=== PATIENT | female | born 1930 | race Caucasian/White ===

== ENCOUNTER 2017-09-04 08:14 | Day surgery (SDC) | payer OTHER ==
[~2017-09-04 08:14] MED LIST: ALBU90OI INH; ALL DAY ALLERGY10 M1; Augmentin 875-1 EACH PO; CHOL10002; ESTRADIOL1 MG; GABA300; HYDHCL25; HYDR1TAB94; Norco 5-325 Ta1 EACH PO; OFLO.3OTSO; PARO20; Ventolin Soln3 ML INH
== END 2017-09-04 22:38 | disposition home or self-care (01) ==
LOC: MOI US 08:14
PROC: 0HBU3ZX Excision of Left Breast, Percutaneous Approach, Diagnostic (ICD-10-PCS; principal; 2017-09-04)
DX: N60.32 Fibrosclerosis of left breast (principal)
CPT/HCPCS: 19083; 19084; 77065; 88305; A4648

== ENCOUNTER 2018-04-12 09:52 | Inpatient (IN) | payer OTHER ==
[~2018-04-12] VITALS: Ht 165.1 cm; Wt 85.0 kg
[~2018-04-12 09:52] MED LIST changes: -ALL DAY ALLERGY10 M1; +ALL DAY ALLERGY10 M1 PO; -PARO20; +PARO20 PO
[2018-04-12 10:28] LABS: BASOPHILS ABSOLUTE AUTO 0.02 K/mm3 (0.00-0.23); BASOPHILS PERCENT AUTO 0 % (0-2); EOSINOPHILS ABSOLUTE AUTO 0.01 K/mm3 (0.00-0.68); EOSINOPHILS PERCENT AUTO 0 % (0-6); Hematocrit 41.5 % (33.0-51.0); Hemoglobin 13.1 g/dL (11.5-16.0); IMMATURE GRAN ABSOLUTE AUTO 0.01 K/mm3 (0.00-0.10); IMMATURE GRAN PERCENT AUTO 0 % (0-1); LYMPHOCYTES PERCENT AUTO 24 % (21-46); MONOCYTES ABSOLUTE AUTO 0.27 K/mm3 (0.16-1.47); MONOCYTES PERCENT AUTO 5 % (4-13); Mean Corpuscular HGB 28.7 pg (26.0-34.0); Mean Corpuscular HGB Conc 31.6 g/dL (31.5-36.5); Mean Corpuscular Volume 91 fL (80-100); Mean Platelet Volume 9.9 fL (9.1-12.4); NEUTROPHILS ABSOLUTE AUTO 3.51 K/mm3 (1.96-9.15); NEUTROPHILS PERCENT AUTO 70 % (41-73); Platelet Count 183 K/mm3 (150-400); RDW Coefficient Variation 13.8 % (11.7-14.2); Red Blood Cell Count 4.56 M/mm3 (3.80-5.20); White Blood Cell Count 5.02 K/mm3 (4.00-11.30)
[2018-04-12 10:39] LABS: Alanine Aminotransfer (ALT/SGP 21 U/L (12-78); Albumin, Blood 3.6 g/dL (3.4-5.0); Albumin/Globulin Ratio 1.1 (0.8-1.8); Alk Phos 75 U/L (50-136); Anion Gap 7 mmol/L (6-16); Aspartate Aminotrans (AST/SGOT 16 U/L (12-37); Bilirubin, Total 0.5 mg/dL (0.1-1.0); Blood Urea Nitrogen 20 mg/dL (8-24); Bun/Creatinine Ratio 18.3 (12.0-20.0); CO2, Blood 26 mmol/L (21-32); Calcium, Blood 9.2 mg/dL (8.5-10.1); Chloride, Blood 107 mmol/L (98-108); Creatinine, Blood 1.09 mg/dL (0.40-1.00); Ethanol (Alcohol), Blood, Med <3 mg/dL; Globulin, Blood 3.4 g/dL (2.2-4.0); Glomerular Filtration Rate 50 (60-); Glucose, Blood 130 mg/dL (70-99); Potassium, Blood 4.3 mmol/L (3.5-5.5); Sodium, Blood 140 mmol/L (136-145)
[2018-04-12 10:40] LABS: International Normalized Ratio 0.95; Prothrombin Time Results 10.1 Sec (9.7-11.5)
[2018-04-12 11:44] LABS: Source, Urine Catheter
[2018-04-12 12:18] LABS: Appearance, Urine Clear (Clear); Bilirubin, Urine Neg (Neg); Blood, Urine 3+ (Neg); Color, Urine Yellow (P-Yellow); Glucose Qualitative, Urine Neg (Neg); Ketones, Urine Neg (Neg); Leukocyte Esterase, Urine Neg (Neg); Nitrite, Urine Neg (Neg); Protein, Urine Neg (Neg); Specific Gravity, Urine 1.015 (1.003-1.022); Urobilinogen, Urine NORM (Normal)
[2018-04-12 12:56] LABS: Squamous Epithelial Cells Few /hpf (Few); White Blood Cells, Urine 0-2 /hpf (0-5)
[2018-04-12 12:57] LABS: Bacteria Rare /hpf
[2018-04-12] MEDS ORDERED: PREG75 PO (13:12)
[2018-04-12 13:15] LABS: U Amphetamine Screen Not Detected; U Barbituate Screen Not Detected; U Benzodiazapine Screen Not Detected; U Buprenorphine Screen Not Detected; U Cannabinoids Screen Not Detected; U Cocaine Screen Not Detected; U Methadone Screen Not Detected; U Methamphetamine Screen Not Detected; U Opiates Screen Not Detected; U Oxycodone Screen Not Detected; U Phencyclidine Screen Not Detected; U Propoxyphene Screen Not Detected
[2018-04-12] MEDS ORDERED: KEFLEX250 MG PO (13:16)
[2018-04-12 13:37] LABS: Troponin I <0.015 ng/mL (0.000-0.040)
[2018-04-12 13:38] LABS: Thyroid Stimulating Hormone 0.798 uIU/mL (0.360-4.800)
[2018-04-12] MEDS ORDERED: BACI500TO LEFTEYE (13:59)
[2018-04-12] MEDS ORDERED: Ocuflox5 ML LEFTEYE (14:00)
[2018-04-12] MEDS ORDERED: TOBRADEX ST EYE5 ML BOTHEYES (14:03)
[2018-04-12] MEDS ORDERED: ACET325 PO (16:06)
--- NOTE | 2018-04-12 16:35 | NUR ---
ER ADMIT- NEW ER ADMIT TO ROOM 325. GRAND DAUGHTER AT BEDSIDE. PT A/OX4, BUT HAVING A HARD TIME REMEMBERING THIS AM PRIOR TO COMING TO HOSPITAL. CLIENT CARE SPECIALIST AND LOWER EXTREMETIES STRONG AND EQUAL. SPEECH SLURRED. PT DENIES ANY PAIN OR OTHER COMPLAINTS. PT REPORTS CHRONIC NUMBNESS TO BILAT HANDS. LS CLEAR, ON RA, PT REPORTS SHE WEARS OXYGEN AT 2L AT HS. PT ASSITED UP TO BSC WITH 1 ASSIST, PT FOLLOWS DIRECTION WELL AND BEARS WEIGHT. PT VOIDED 500CC. BEDSIDE NURSE SWALLOW COMPLETED AND PT DID WELL WITH SWALLOWING AND ASKING FOR FOOD, PER DR GARCES OK TO ORDER SOFT DIET. PT ORIENTED TO ROOM AND CALL SYSTEM, CALL LIGHT IN REACH AND BED ALARM ON. SEIZURES PADS ON RAILS. SON FROM [place] UPDATED VIA PHONE.
--- NOTE | 2018-04-12 18:27 | NUR ---
PT ATE 100% OF DINNER, NO DIFFICULTY NOTED WITH SWALLOWING. SPEECH CLEAR AND AT BASELINE PER FAMILY, FAMILY REPORTS PT STILL WORD SEARCHING AT TIMES. PT UP TO BSC WITH 1 ASSIST, IMPULSIVE AND SLIGHTLY UNSTEADY. GRIBS REMAIN EQUAL AND STRONG. PT REPORTS SHE IS UNSURE WHAT MEDICATIONS SHE TOOK THIS AM BUT WAS RECENTLY DIAGNOSED WITH UTI AND STARTED ON ANTIBIOTICS. SPOKE WITH SON FROM [employer] WHO REPORTS THEY WERE TALKING WITH PT RECENTLY PRIOR TO ADMIT ABOUT NEEDING MORE ASSISTANCE IN THE HOME AND WITH MEDICATIONS.
[2018-04-13 05:26] LABS: BASOPHILS ABSOLUTE AUTO 0.01 K/mm3 (0.00-0.23); BASOPHILS PERCENT AUTO 0 % (0-2); EOSINOPHILS PERCENT AUTO 2 % (0-6); Hematocrit 37.8 % (33.0-51.0); Hemoglobin 11.7 g/dL (11.5-16.0); IMMATURE GRAN ABSOLUTE AUTO 0.01 K/mm3 (0.00-0.10); IMMATURE GRAN PERCENT AUTO 0 % (0-1); LYMPHOCYTES ABSOLUTE AUTO 1.95 K/mm3 (0.84-5.20); LYMPHOCYTES PERCENT AUTO 43 % (21-46); MONOCYTES ABSOLUTE AUTO 0.31 K/mm3 (0.16-1.47); MONOCYTES PERCENT AUTO 7 % (4-13); Mean Corpuscular HGB 28.5 pg (26.0-34.0); Mean Corpuscular Volume 92 fL (80-100); Mean Platelet Volume 10.1 fL (9.1-12.4); NEUTROPHILS ABSOLUTE AUTO 2.17 K/mm3 (1.96-9.15); NEUTROPHILS PERCENT AUTO 48 % (41-73); Platelet Count 205 K/mm3 (150-400); RDW Coefficient Variation 14.1 % (11.7-14.2); RDW Standard Deviation 47.2 fL (35.1-46.3); Red Blood Cell Count 4.11 M/mm3 (3.80-5.20); White Blood Cell Count 4.55 K/mm3 (4.00-11.30)
[2018-04-13 05:53] LABS: Anion Gap 6 mmol/L (6-16); Blood Urea Nitrogen 17 mg/dL (8-24); CO2, Blood 28 mmol/L (21-32); Calcium, Blood 8.8 mg/dL (8.5-10.1); Chloride, Blood 111 mmol/L (98-108); Cholesterol 178 mg/dL (50-200); Creatinine, Blood 1.21 mg/dL (0.40-1.00); Glomerular Filtration Rate 45 (60-); Glucose, Blood 129 mg/dL (70-99); Potassium, Blood 4.4 mmol/L (3.5-5.5); Sodium, Blood 145 mmol/L (136-145)
[2018-04-13 05:55] LABS: CHOL/HDL RATIO 4.6; HDL Cholesterol 39 mg/dL (>39); LDL/HDL RATIO 2.4; Low Density Lipoprotein Chol 94 mg/dL (0-110); Triglycerides 227 mg/dL (30-160); Very Low Density Lipoprot Chol 45 mg/dL (6-32)
--- NOTE | 2018-04-13 06:36 | NUR ---
Rn summary: Pt is alert and oriented x3. She has rested well this shift. Pt has stiffness to rt shoulder but transformer mechanic are equal, foot push pulls equal. Pt is impulsive when she needs to go to the BSC but is otherwise cooperative and appropriate. Pt has pink tinged urine. She states she has N/T to margarita hands and feet. She c/o pain to right lower quad and area is tender to touch. Bowel tones hyper active. Abdomen rounded but soft. Neuro checks q 4 hours, they remain stable. Call light in reach and bed alarm on. Temp this am 100.1. A few blankets removed.
--- NOTE | 2018-04-13 19:51 | NUR ---
PATIENT A&O X4. DENIES PAIN, SOB, OR NAUSEA. NEURO CHECKS Q 4, WNL. PATIENT RESTED THROUGHOUT THE SHIFT. FLUIDS RUNNING. FAMILY AT THE BEDSIDE ON AND OFF. BED ALARM ON. UP IN CHAIR FOR MEALS. NO ACUTE CHANGES.
--- NOTE | 2018-04-14 04:38 | NUR ---
SHIFT SUMMARY PT HAS SLEPT THROUGHOUT SHIFT. PT HAD NO COMPLAINTS THIS SHIFT. PT CURRENTLY SLEEPING AND BREATHING EASY. CALL LIGHT IN REACH.
[2018-04-14 05:54] LABS: BASOPHILS ABSOLUTE AUTO 0.02 K/mm3 (0.00-0.23); BASOPHILS PERCENT AUTO 0 % (0-2); EOSINOPHILS ABSOLUTE AUTO 0.18 K/mm3 (0.00-0.68); EOSINOPHILS PERCENT AUTO 4 % (0-6); Hemoglobin 10.7 g/dL (11.5-16.0); IMMATURE GRAN ABSOLUTE AUTO 0.01 K/mm3 (0.00-0.10); IMMATURE GRAN PERCENT AUTO 0 % (0-1); LYMPHOCYTES ABSOLUTE AUTO 2.29 K/mm3 (0.84-5.20); LYMPHOCYTES PERCENT AUTO 46 % (21-46); MONOCYTES ABSOLUTE AUTO 0.41 K/mm3 (0.16-1.47); MONOCYTES PERCENT AUTO 8 % (4-13); Mean Corpuscular HGB 28.2 pg (26.0-34.0); Mean Corpuscular HGB Conc 30.6 g/dL (31.5-36.5); Mean Corpuscular Volume 92 fL (80-100); Mean Platelet Volume 10.2 fL (9.1-12.4); NEUTROPHILS PERCENT AUTO 42 % (41-73); Platelet Count 175 K/mm3 (150-400); RDW Coefficient Variation 14.2 % (11.7-14.2); Red Blood Cell Count 3.79 M/mm3 (3.80-5.20); White Blood Cell Count 5.01 K/mm3 (4.00-11.30)
[2018-04-14 06:09] LABS: Albumin, Blood 2.7 g/dL (3.4-5.0); Anion Gap 7 mmol/L (6-16); Blood Urea Nitrogen 21 mg/dL (8-24); Bun/Creatinine Ratio 16.2 (12.0-20.0); CO2, Blood 26 mmol/L (21-32); Calcium, Blood 8.2 mg/dL (8.5-10.1); Chloride, Blood 113 mmol/L (98-108); Glomerular Filtration Rate 41 (60-); Glucose, Blood 112 mg/dL (70-99); Phosphorus, Blood 2.7 mg/dL (2.5-4.9); Potassium, Blood 4.3 mmol/L (3.5-5.5); Sodium, Blood 146 mmol/L (136-145)
[2018-04-14] MEDS ORDERED: Aspir 8181 MG PO (12:55)
[2018-04-14] MEDS ORDERED: ATOR80 PO (12:56)
[2018-04-14] MEDS ORDERED: HYDR1TAB94 PO (12:57)
[2018-04-14] MEDS ORDERED: ALBU90OI INH (12:58)
[2018-04-14] MEDS ORDERED: GABA100 PO (12:58)
--- NOTE | 2018-04-14 14:15 | NUR ---
DISCHARGE SUMMARY PATIENT A&O X4. DISCHARGED INFORMATION REVIEWED. MEDICATIONS FAXED/CALLED IN TO [facility]. IV D/C, WNL. SON AND DAUGHTER IN [place] AT THE BEDSIDE. ALL PATIENT BELONGINGS IN HAND. ESCORTED OUT BY THE DIRECTOR STAFFING IN A WHEELCHAIR.
== END 2018-04-14 13:56 | disposition home health service (06) | DRG 65 ==
LOC: ER 09:52 → MEDS 12:45
PROVIDERS: Emergency Medicine; ADMIT Family Medicine
DX: I63.9 Cerebral infarction, unspecified (principal); G81.91 Hemiplegia, unspecified affecting right dominant side; R47.81 Slurred speech; J44.9 Chronic obstructive pulmonary disease, unspecified; Z99.81 Dependence on supplemental oxygen; F17.220 Nicotine dependence, chewing tobacco, uncomplicated; Z88.2 Allergy status to sulfonamides; Z88.8 Allergy status to other drugs, medicaments and biological substances
CPT/HCPCS: 36415; 70450; 71046; 80048; 80053; 80061; 80069; 81001; 83735; 84145; 84443; 84484; 85025; 85610; 85651; 92526; 92610; 93005; 93010; 94760; 97116; 97162; 97165; 97530; 99285-25; G0480; J7030; P9612

== ENCOUNTER → 2018-04-17 | Outpatient (CLI) | payer OTHER ==
[~2018-04-17] MED LIST changes: +ACET325 PO; +ATOR80 PO; +Aspir 8181 MG PO; +BACI500TO LEFTEYE; +GABA100 PO; +HYDR1TAB94 PO; +KEFLEX250 MG PO; +Ocuflox5 ML LEFTEYE; +PREG75 PO; +TOBRADEX ST EYE5 ML BOTHEYES
[2018-04-17 13:22] LABS: Source, Urine Clean Catch
[2018-04-17 15:04] LABS: Bilirubin, Urine Neg (Neg); Blood, Urine 1+ (Neg); Glucose Qualitative, Urine Neg (Neg); Ketones, Urine Neg (Neg); Leukocyte Esterase, Urine 1+ (Neg); Nitrite, Urine Neg (Neg); Protein, Urine Neg (Neg); Specific Gravity, Urine 1.005 (1.003-1.022); Urobilinogen, Urine NORM (Normal)
[2018-04-17 15:18] LABS: Appearance, Urine Clear (Clear); Color, Urine Yellow (P-Yellow)
[2018-04-17 15:20] LABS: Red Blood Cells, Urine 0-2 /hpf (0-2); Squamous Epithelial Cells Not Seen /hpf (Few)
[2018-04-17 15:21] LABS: Bacteria Mod /hpf
== END | disposition home or self-care (01) ==
LOC: LAB 13:20 → LAB SHORT 13:20
PROVIDERS: Internal Medicine
DX: R30.0 Dysuria (principal)
CPT/HCPCS: 81001; 87077; 87086; 87186

== ENCOUNTER 2018-07-21 03:28 | Emergency (ER) | payer OTHER ==
[~2018-07-21] VITALS: Ht 157.5 cm; Wt 90.7 kg
[2018-07-21 03:56] LABS: BASOPHILS ABSOLUTE AUTO 0.01 K/mm3 (0.00-0.23); BASOPHILS PERCENT AUTO 0 % (0-2); EOSINOPHILS ABSOLUTE AUTO 0.24 K/mm3 (0.00-0.68); EOSINOPHILS PERCENT AUTO 5 % (0-6); Hematocrit 40.5 % (33.0-51.0); Hemoglobin 12.4 g/dL (11.5-16.0); IMMATURE GRAN PERCENT AUTO 0 % (0-1); LYMPHOCYTES ABSOLUTE AUTO 1.86 K/mm3 (0.84-5.20); LYMPHOCYTES PERCENT AUTO 37 % (21-46); MONOCYTES ABSOLUTE AUTO 0.44 K/mm3 (0.16-1.47); MONOCYTES PERCENT AUTO 9 % (4-13); Mean Corpuscular HGB Conc 30.6 g/dL (31.5-36.5); Mean Corpuscular Volume 95 fL (80-100); Mean Platelet Volume 10.8 fL (9.1-12.4); NEUTROPHILS ABSOLUTE AUTO 2.45 K/mm3 (1.96-9.15); NEUTROPHILS PERCENT AUTO 49 % (41-73); Platelet Count 168 K/mm3 (150-400); RDW Coefficient Variation 13.9 % (11.7-14.2); RDW Standard Deviation 48.2 fL (35.1-46.3); Red Blood Cell Count 4.28 M/mm3 (3.80-5.20)
[2018-07-21 04:11] LABS: Albumin, Blood 3.3 g/dL (3.4-5.0); Bilirubin, Total 0.3 mg/dL (0.1-1.0); Bun/Creatinine Ratio 20.7 (12.0-20.0); Calcium, Blood 8.7 mg/dL (8.5-10.1); Creatinine, Blood 1.16 mg/dL (0.40-1.00); Globulin, Blood 3.2 g/dL (2.2-4.0); Potassium, Blood 3.9 mmol/L (3.5-5.5); Total Protein, Blood 6.5 g/dL (6.4-8.2)
[2018-07-21 05:58] LABS: Source, Urine Catheter
[2018-07-21 06:01] LABS: Bilirubin, Urine Neg (Neg); Blood, Urine Neg (Neg); Glucose Qualitative, Urine Neg (Neg); Ketones, Urine Neg (Neg); Leukocyte Esterase, Urine 2+ (Neg); Nitrite, Urine Neg (Neg); Protein, Urine Neg (Neg); Urobilinogen, Urine NORM (Normal); pH, Urine 6.5 (5.0-8.0)
[2018-07-21 06:03] LABS: Appearance, Urine Clear (Clear); Color, Urine Yellow (P-Yellow)
[2018-07-21 06:08] LABS: Bacteria Few /hpf; Red Blood Cells, Urine Not Seen /hpf (0-2); Squamous Epithelial Cells Rare /hpf (Few)
[2018-07-21] MEDS ORDERED: CEPH500 PO (06:36)
== END 2018-07-21 07:36 | disposition home or self-care (01) ==
LOC: ER 03:28
PROVIDERS: Emergency Medicine
DX: N39.0 Urinary tract infection, site not specified (principal); Z88.6 Allergy status to analgesic agent; Z88.2 Allergy status to sulfonamides; Z79.899 Other long term (current) drug therapy; Z79.82 Long term (current) use of aspirin; Z79.891 Long term (current) use of opiate analgesic; F41.9 Anxiety disorder, unspecified; E78.00 Pure hypercholesterolemia, unspecified
CPT/HCPCS: 36415; 70450; 80053; 81001; 85025; 87086; 93005; 93010; 99284-25

== ENCOUNTER 2019-07-23 08:42 | Day surgery (SDC) | payer OTHER ==
[~2019-07-23] VITALS: Ht 152.4 cm; Wt 91.8 kg
[~2019-07-23 08:42] MED LIST changes: +CEPH500 PO; +FAMO20 PO; +TRAM50 PO; +Vitamin D2000 UNIT PO
--- NOTE | 2019-07-23 10:39 | NUR ---
07/23/19 1039 Patricia Frazier (Tarah WAITING FOR ANESTHESIA; PREVIOUSLY OR CASE RAN LONG.
--- NOTE | 2019-07-23 11:06 | NUR ---
07/23/19 1106 Patricia Frazier USED IN ROOM 1; UNABLE TO DOCUMENT UNDER ROOM ONE.
== END 2019-07-23 11:56 | disposition home or self-care (01) ==
LOC: ORSCSDS 08:42
PROVIDERS: Surgery
PROC: 0DBH8ZX Excision of Cecum, Via Natural or Artificial Opening Endoscopic, Diagnostic (ICD-10-PCS; principal; 2019-07-23 10:30)
DX: Z12.11 Encounter for screening for malignant neoplasm of colon (principal); Z86.010 Personal history of colon polyps; D12.0 Benign neoplasm of cecum; K21.9 Gastro-esophageal reflux disease without esophagitis; R13.10 Dysphagia, unspecified; M79.7 Fibromyalgia; G47.33 Obstructive sleep apnea (adult) (pediatric); Z79.899 Other long term (current) drug therapy; Z79.82 Long term (current) use of aspirin
CPT/HCPCS: 88305; J2704; J7120